=== PATIENT | male | born 1955 | race Caucasian/White ===

== ENCOUNTER 2020-04-13 09:34 | Observation (INO) ==
[2020-04-13] MEDS ORDERED: ANCEF 1 GRAM IV PREMIX* 1 G/50 ML BAG IV ONE ×2 (10:54→13:13)
[2020-04-13] MEDS ORDERED: LR 1000 ML IV 1,000 ML IV ONE (10:54)
[2020-04-13] MEDS: NAROPIN 0.75% EPI ONE ×2 (11:16→11:18)
[2020-04-13] MEDS ORDERED: FENTANYL INJ 100 mcg ONE (11:57)
[2020-04-13] MEDS ORDERED: MARCAINE 0.25% INJ ONE (12:56)
[2020-04-13] MEDS ORDERED: SUPRANE ONE ×2 (13:01→13:15)
[2020-04-13] MEDS ORDERED: NORCURON INJ 10 MG VIAL ONE (13:15)
[2020-04-13] MEDS ORDERED: XYLOCAINE 2 % (PLAIN) ONE (13:15)
[2020-04-13] MEDS ORDERED: VERSED ONE (13:15)
[2020-04-13] MEDS ORDERED: QUELICIN (OR ANECTINE) ONE (13:15)
[2020-04-13] MEDS ORDERED: DIPRIVAN VIAL ONE (13:15)
[2020-04-13 14:45] VITALS: BMI 26.3
[2020-04-13] MEDS ORDERED: HYDROGEN PEROXIDE 3% ONE (16:21)
[2020-04-13] MEDS ORDERED: BENADRYL INJ 50 MG VIAL IVP PRN (16:49)
[2020-04-13] MEDS ORDERED: DILAUDID INJ IVP PRN ×2 (16:49→17:50)
[2020-04-13] MEDS ORDERED: REGLAN INJ 10 MG VIAL IVP PRN (16:49)
[2020-04-13] MEDS ORDERED: ZOFRAN INJ 4 MG VIAL IVP PRN (16:49)
[2020-04-13] MEDS ORDERED: PHENERGAN INJ 25 MG IM PRN (16:49)
[2020-04-13] MEDS ORDERED: ZOFRAN INJ 4 MG VIAL ONE (16:50)
[2020-04-13] MEDS ORDERED: REGLAN INJ 10 MG VIAL ONE (17:09)
[2020-04-13] MEDS ORDERED: NS 1000 ML 1,000 ML ONE (17:43)
[2020-04-13] MEDS: NS 1000 ML 1,000 ML IV SCH (17:48)
[2020-04-13] MEDS: PERCOCET TAB 5/325 MG PO PRN (21:21)
[2020-04-14] MEDS: PERCOCET TAB 5/325 MG PO PRN ×4 (04:35→20:46)
[2020-04-14] MEDS: NS 1000 ML 1,000 ML IV SCH ×4 (06:19→22:51)
[2020-04-14] MEDS ORDERED: TORADOL 15 MG VIAL IVP ONE (13:30)
[2020-04-14] MEDS ORDERED: PERCOCET TAB 5/325 MG PO PRN ×2 (13:31→14:04)
[2020-04-14] MEDS ORDERED: COLACE CAP 100 MG PO SCH (21:00)
[2020-04-14] MEDS ORDERED: MILK OF MAGNESIA PO SCH (21:00)
[2020-04-15] MEDS: PERCOCET TAB 5/325 MG PO PRN ×2 (02:56→08:51)
[2020-04-15] MEDS ORDERED: MAALOX or MYLANTA ONE (04:26)
[2020-04-15] MEDS ORDERED: MAALOX or MYLANTA PO PRN (04:35)
--- NOTE | 2020-04-15 06:56 | MD.NOTE ---
Provider Note Note Note: S/O: 64M seen at bedside resting comfortably w/ RLE elevated x 2 pillows NAD, denies n/v/f/c/sob. Pt states that pain decreased from 910 yesterday to 4/10 today and the adjustment in his PO pain meds was adequate in order to control post op pain A: - 64M s/p tib/fib osteotomy w/ application of external fixator RLE - no strike through in dressing - cap fill digits 1-5 < 3 sec b/l LE - exfix in tact w/ no pin site irritation P: - PT will see Mr. Bangura today --> Partial WB for transfers - Rx's for pain medication in chart - Pt good for d/c once seen by PT and Dr. Conway - pt will f/u next week in office ([facility] [place])
[2020-04-15 11:26] VITALS: BP 155/85
== END 2020-04-15 11:35 | disposition home health service (06) ==
LOC: SURG1 09:34 → MED/SURG 09:34
PROVIDERS: ADMIT Obstetrics & Gynecology Obstetrics; ATTEND Podiatrist